=== PATIENT | male | born 1965 | race Caucasian/White ===

== ENCOUNTER 2019-09-21 06:38 | Emergency (ER) | payer OTHER, SELFPAY ==
[2019-09-21] VITALS (10 sets, daily range): BP systolic 114–134; BP diastolic 60–89; PULSE 51–135; RESP 12–18; TEMP 36.9; O2SAT 98–100; BMI 30.7
--- NOTE | 2019-09-21 06:53 | DI.RAD.S_ITS ---
PROCEDURE: XR CHEST 1V INDICATIONS: Recurring atrial fibrillation TECHNIQUE: One view of the chest was acquired. COMPARISON: None. FINDINGS: Surgical changes and devices: None. Lungs and pleura: Lungs are clear. No pleural effusions or pneumothorax. Mediastinum: Mediastinal contours appear normal. Heart size is normal. Bones and chest wall: No suspicious bony lesions. Overlying soft tissues appear unremarkable. IMPRESSION: No acute process. Dictated by: Enrico Germani M.D. on 09/21/2019 at 7:36 Approved by: Enrico Germain M.D. on 09/21/2019 at 7:36
--- NOTE | 2019-09-21 07:01 | ED.ARRPALP ---
HPI - Arrhythmia/Palpitations General Chief Complaint: Arrhythmia/Palpitations Stated Complaint: thinks he is in AFIB Time Seen by Provider: 09/21/19 06:41 Source: patient Mode of arrival: Ambulatory Limitations: no limitations History of Present Illness HPI narrative: 53-year-old male with history of atrial fibrillation. Does see a housing grant analyst. Several months ago was taken off his Cardizem and flecainide because he went ?a long time ?without having any episodes of AFib. Has not had any issues since last evening when he states that he was sitting on the couch watching TV when he started noticing that his heart rate was going fast. No chest pain or shortness of breath. No lightheadedness. He states that it felt like his AFib. No interventions prior to arrival. Related Data Previous Rx's Medication Instructions Recorded rivaroxaban [Xarelto] 15 mg PO QPM #21 tab 09/21/19 Allergies Allergy/AdvReac Type Severity Reaction Status Date / Time No Known Drug Allergies Allergy Verified 09/21/19 07:37 Review of Systems Constitutional Constitutional: Denies fever(s) and Denies headache(s) ENT Ears, Nose, Mouth, and Throat: Denies headache(s) Cardiovascular Cardiovascular: Denies chest pain, Denies syncope, Reports rapid heart rate, Denies leg edema, Reports palpitations and Denies dyspnea Respiratory Respiratory: Denies dyspnea Gastrointestinal Gastrointestinal: Denies abdominal pain, Denies nausea and Denies vomiting Genitourinary Genitourinary: Denies dysuria Musculoskeletal Musculoskeletal: Denies myalgias and Denies arthralgias Integumentary/Breasts Skin/Breast: Denies lesions and Denies rash Neurologic Neurologic: Denies behavioral changes, Denies syncope and Denies headache(s) Psychiatric Psychiatric: Denies behavioral changes Endocrine Endocrine: Reports palpitations Hematologic/Lymphatic Hematologic/Lymphatic: Denies easy bleeding and Denies easy bruising Patient History Medical History Atrial fibrillation (Acute) Social History Smoking Status: Never smoker Smoking Status: Never smoker alcohol intake frequency: 0-2 drinks per day Substance Use Type: does not use Exam Initial Vital Signs Initial Vital Signs: Vital Signs Temperature 98.4 F 09/21/19 06:45 Pulse Rate 135 H 09/21/19 06:45 Respiratory Rate 18 09/21/19 06:45 Blood Pressure 134/89 09/21/19 06:45 Pulse Oximetry 98 09/21/19 06:45 Const General: cooperative, comfortable, well developed and well groomed Limitations: mental status not altered HENMT Head: normal to inspection and normocephalic Resp Effort & Inspection: normal respiratory effort Auscultation: clear to auscultation bilaterally Cardio Rate: regular rate Rhythm: abnormal rhythm Pulses: radial pulses present GI Inspection: non-distended Palpation: soft and No firm Skin Lesions: no lesions Rashes: no rashes Neuro General: alert, awake and oriented x3 Cognition: normal cognition Speech: speech normal Gait: normal gait Extrem General: normal to inspection and capillary refill normal Psych Appearance: grossly normal and well kempt Procedures Cardioversion Consent Signed: Yes Indication: AFib Cardiac rhythm prior to cardioversion: AFib Stability: Stable Number of attempts (shocks): 1 Joules used: 150 Cardiac rhythm post-cardioversion: Sinus rhythm Procedural Sedation Patient Age: Patient is 5yrs or older Consent signed: Yes Time out performed: Yes Indication: cardioversion Presedation Evaluation: See HPI ASA Class: I Mallampati Airway Classification: Class I Preparation: business improvement manager applied, pulse oximeter, capnometry used and supplemental O2 applied Fentanyl: IV Fentanyl dose (mcg): 50 IV Propofol dose (mg): 80 ED Sedation Level: Moderate (Concious) Patient Tolerated Procedure: Well Complications: none Scores GCS [place] coma scale eye opening: Spontaneous [place] coma scale verbal response: Orientated [place] coma scale motor response: Obey commands [place] coma scale total score: 15 Course Orders Ordered: ED Orders 09/21/19 06:45 EKG-12 Lead Stat 09/21/19 06:53 XR chest 1V Stat 09/21/19 06:56 Complete Blood Count AUTO DIFF Stat Comprehensive Metabolic Panel Stat Troponin & CK Cardiac Panel Stat 09/21/19 08:43 RT Consult Eval and Treat Now 09/21/19 08:44 EKG-12 Lead Stat Sodium Chloride (Normal Saline 0.9%) 1,000 mls @ 150 mls/hr IV CONT CHANEL Last Admin: 09/21/19 07:02 Dose: 150 mls/hr Documented by: BSMARINO Discontinued Medications Diltiazem HCl (Cardizem) 20 mg IV NOW ONE Stop: 09/21/19 06:54 Last Admin: 09/21/19 07:03 Dose: 15 mg Documented by: CHANELL Fentanyl (Sublimaze) 50 mcg IV NOW ONE Stop: 09/21/19 08:44 Last Admin: 09/21/19 10:00 Dose: 50 mcg Documented by: MYRA Flecainide Acetate (Tambocor) 100 mg PO NOW ONE Stop: 09/21/19 07:25 Last Admin: 09/21/19 07:38 Dose: 100 mg Documented by: MYRA Propofol (Diprivan) 100 mg 1 mg/kg (100 mg) IV NOW ONE Stop: 09/21/19 08:44 Last Admin: 09/21/19 10:02 Dose: 80 mg Documented by: MRYA Rivaroxaban (Xarelto) 15 mg PO NOW ONE Stop: 09/21/19 10:28 Vital Signs Vital signs: Vital Signs - 8 hr 09/21/19 06:45 09/21/19 07:03 09/21/19 07:30 Temperature 98.4 F Pulse Rate 135 H 115 H 73 Respiratory Rate 18 17 Blood Pressure 134/89 132/85 Blood Pressure [Right Arm] 122/65 Pulse Oximetry 98 99 09/21/19 08:30 09/21/19 09:30 09/21/19 10:00 Temperature Pulse Rate 83 91 H 79 Respiratory Rate 12 17 14 Blood Pressure Blood Pressure [Right Arm] 126/71 130/60 123/83 Pulse Oximetry 98 99 99 09/21/19 10:04 09/21/19 10:05 09/21/19 10:25 Temperature Pulse Rate 56 L 60 51 L Respiratory Rate 16 14 18 Blood Pressure Blood Pressure [Right Arm] 121/82 119/77 127/74 Pulse Oximetry 99 100 100 MDM - Arrhythmia/Palpitations Lab Data Attestation: I reviewed the patient's lab results. Result diagrams: 09/21/19 06:56 09/21/19 06:56 Labs: Lab Results 09/21/19 09/21/19 Range/Units 06:56 06:56 WBC 4.6 (4.5-11.0) X10^3/uL RBC 5.27 (4.5-5.9) X10^6/uL Hgb 16.7 (13.5-17.5) g/dL Hct 48.7 (41-53) % MCV 92.3 (80-100) fL MCH 31.7 (26-34) PG MCHC 34.3 (30-36) % RDW 13.1 (11.6-14.8) % Plt Count 212 (150-400) X10^3/uL Neut % (Auto) 57.8 (50-75) % Lymph % (Auto) 32.5 (25-40) % [place] % (Auto) 7.9 (3-14) % Eos % (Auto) 0.9 L (2-4) % Baso % (Auto) 0.9 (0-2) % Neut # (Auto) 2700 (9423-1502) /uL Lymph # (Auto) 1500 (7582-7935) /uL [place] # (Auto) 400 (0-900) /uL Eos # (Auto) 0 (0-450) /uL Baso # (Auto) 0 (0-100) /uL Sodium 143 (137-145) mmol/L Potassium 3.7 (3.4-5.1) mmol/L Chloride 106 (98-107) mmol/L Carbon Dioxide 24 (22-32) mmol/L BUN 13 (9-20) mg/dL Creatinine 0.70 (0.66-1.25) mg/dL Estimated GFR > 60.0 (>60) mL/min BUN/Creatinine Ratio 18.6 (6-22) Glucose 93 (70-100) mg/dL Calcium 9.9 (8.4-10.2) mg/dL Total Bilirubin 0.9 (0.2-1.3) mg/dL AST 30 (17-59) IU/L ALT 21 (<50) IU/L Alkaline Phosphatase 68 (38-126) U/L Total Creatine Kinase 222 H (55-170) U/L CK-MB (CK-2) 1.63 (<2.37) ng/mL CK-MB (CK-2) Rel Index 0.7 L (1.5-5.0) % Troponin I < 0.012 (0.01-0.034) ng/mL Total Protein 8.3 H (6.3-8.2) g/dL Albumin 4.7 (3.5-5.0) g/dL Globulin 3.6 (1.7-4.1) g/dL Albumin/Globulin Ratio 1.3 (1.0-2.8) Imaging Data Chest x-ray: Attestation: I personally reviewed and interpreted this imaging study as follows: My Impression: No pneumonia, normal size heart, no effusion Radiologist's Impresson: [address] [address] XRay Report Signed Patient: Elieser Colunga JR KMR#: [id number] : 1965Acct:[id number] Age/Sex: 53 / MDate of Service: 09/21/19 Loc: ED Accession Number: [id number] Procedure: XR chest 1V Ordering Provider: Neeta Evans MD PROCEDURE: XR CHEST 1V INDICATIONS: Recurring atrial fibrillation TECHNIQUE: One view of the chest was acquired. COMPARISON: None. FINDINGS: Surgical changes and devices: None. Lungs and pleura: Lungs are clear. No pleural effusions or pneumothorax. Mediastinum: Mediastinal contours appear normal. Heart size is normal. Bones and chest wall: No suspicious bony lesions. Overlying soft tissues appear unremarkable. IMPRESSION: No acute process. Dictated by: Enrico Germain M.D. on 09/21/2019 at 7:36 Approved by: Enrico Germain M.D. on 09/21/2019 at 7:36 ECG Data Attestation: I personally reviewed and interpreted this ECG as follows: Prior ECG tracings: not available for review Interpretation: Atrial fibrillation Ventricular rate of 129 Normal axis Normal QRS Nonspecific ST T wave changes Post cardioversion EKG Sinus bradycardia Ventricular rate of 53 Normal axis Normal QRS Normal QTC No ST T wave changes MDM Narrative Medical decision making narrative: Patient arrived in atrial fibrillation. His heart rate did improve somewhat with the Cardizem. He was given flecainide which kept his heart rate less than 100 however he was still in atrial fibrillation. I discussed with him his options to include continued rate control versus rhythm control. After this discussion patient opted for rhythm control. He was sedated and cardioverted successfully as described above. He was started on Xarelto. Given a prescription for Xarelto. We did discuss return precautions and follow-up instructions. He is going to contact his housing grant analyst tomorrow for potentially any medication pain just. He expressed understanding and agreement plan Discharge Plan Departure Patient Disposition: Home Clinical Impression: Atrial fibrillation Instructions: DI for Atrial Fibrillation Activity Restrictions/Additional Instructions: Recommend you continue to take all of your medications as directed. Tomorrow contact your housing grant analyst for follow-up. Return to the emergency department for any new or worsening symptoms Prescriptions: New Xarelto 15 mg tablet 15 mg PO QPM Qty: 21 RF: 0
[2019-09-21] MEDS: SODIUM CHLORIDE 0.9% 1,000 ML 150 ML IV (07:02)
[2019-09-21] MEDS: dilTIAZem 5 MG/ML SDV 20 MG IV (07:03)
[2019-09-21 07:08] LABS: Add Manual Diff / Slide Review NO; Basophils Absolute Auto 0 /uL (0-100); Basophils Percent Auto 0.9 % (0-2); Eosinophils Absolute Auto 0 /uL (0-450); Eosinophils Percent Auto 0.9 % (2-4); Hematocrit 48.7 % (41-53); Hemoglobin 16.7 g/dL (13.5-17.5); Lymphocytes Absolute Auto 1500 /uL (1100-4500); Lymphocytes Percent Auto 32.5 % (25-40); Mean Corpuscular HGB Conc 34.3 % (30-36); Mean Corpuscular Hemoglobin 31.7 PG (26-34); Mean Corpuscular Volume 92.3 fL (80-100); Monocytes Absolute Auto 400 /uL (0-900); Monocytes Percent Auto 7.9 % (3-14); Neutrophils Absolute Auto 2700 /uL (1500-7000); Neutrophils Percent Auto 57.8 % (50-75); Platelet Count 212 X10^3/uL (150-400); Red Blood Cell Count 5.27 X10^6/uL (4.5-5.9); Red Cell Distribution Width 13.1 % (11.6-14.8); White Blood Cell Count 4.6 X10^3/uL (4.5-11.0)
[2019-09-21 07:21] LABS: Alanine Aminotransferase 21 IU/L (<50); Albumin 4.7 g/dL (3.5-5.0); Albumin Globulin Ratio 1.3 (1.0-2.8); Alkaline Phosphatase 68 U/L (38-126); Aspartate Aminotransferase 30 IU/L (17-59); BUN Creatinine Ratio 18.6 (6-22); Bilirubin Total 0.9 mg/dL (0.2-1.3); Blood Urea Nitrogen 13 mg/dL (9-20); Calcium 9.9 mg/dL (8.4-10.2); Carbon Dioxide 24 mmol/L (22-32); Chloride 106 mmol/L (98-107); Creatine Kinase 222 U/L (55-170); Estimated Glomerular Filt Rate > 60.0 mL/min (>60); Globulin 3.6 g/dL (1.7-4.1); Glucose 93 mg/dL (70-100); Potassium 3.7 mmol/L (3.4-5.1); Sodium 143 mmol/L (137-145); Total Protein 8.3 g/dL (6.3-8.2)
[2019-09-21 07:32] LABS: Troponin I < 0.012 ng/mL (0.01-0.034)
[2019-09-21 07:36] LABS: CKMB % Relative Index 0.7 % (1.5-5.0); Creatine Kinase MB 1.63 ng/mL (<2.37); HEMOLYSIS 21 (0-50)
[2019-09-21] MEDS: FLECAINIDE 100 MG TABLET PO (07:38)
[2019-09-21] MEDS: fentaNYL 100 MCG/2 ML INJ 50 MCG IV (10:00)
[2019-09-21] MEDS: propofoL 200 MG/20 ML VIAL 100 MG IV (10:02)
[2019-09-21] MEDS: RIVAROXABAN 10 MG TABLET 15 MG PO (11:05)
== END 2019-09-21 11:20 | disposition home or self-care (01) ==
PROVIDERS: Emergency Medicine; Emergency Provider Emergency Medicine
DX: I48.91 Unspecified atrial fibrillation (principal)
CPT/HCPCS: 36415; 71045; 80053; 82550; 82553; 84484; 85025; 92960; 93005; 94770; 96361; 96374; 99285; J2704; J3010